=== PATIENT | male | born 1935 | race Caucasian/White ===

== ENCOUNTER 2019-05-08 15:15 | Emergency (ER) | payer MEDICARE, OTHER, SELFPAY ==
[2019-05-08 15:58] VITALS: BP 166/107; PULSE 78; RESP 18; O2SAT 94; BMI 33.3
--- NOTE | 2019-05-08 16:04 | ED_ITS ---
Entered by Deisi Harris, acting as scribe for May 08, 2019 15:15 HPI - Extremity Problem General: Chief complaint: Skin/Abscess/Foreign Body Stated complaint: leg pain Time Seen by Provider: 05/08/19 16:03 Source: patient, family and RN notes reviewed Mode of arrival: ambulatory Limitations: no limitations History of Present Illness: HPI Narrative: 83 yo male presents to ED with complaints of bruising on his buttocks and testes. The patient states he is on a blood thinner (Eloquist). His spouse said the patient has frequent bruising and this occurs about every six months. He has a large bruise back of his L buttock that has been oozing. The spouse said it finally quit oozing a short time ago. MD Complaint: extremity pain and other (buttock and testes bruising) Onset (ago): month(s) (1) Pain Consistency: constant Location: left (buttock) and other (testes) Severity scale (1-10): 8 Quality: aching and constant Radiation: none Relieving factors: medication and rest (off of site) Exacerbating factors: range of motion and rest (on site) Associated symptoms: Reports no associated symptoms; Deny chest pain, fever(s) or rash Context: other (history of same) Review of Systems Const: Denies: fever, chills, body aches or change in appetite Eyes: Denies: blurry vision or eye discomfort ENMT: Denies: throat pain or dental pain Card: Denies: chest pain Resp: Denies: shortness of breath GI: Denies: abdominal pain, nausea, vomiting or diarrhea : Denies: painful urination Musc: Denies: neck pain or back pain Skin/Breast: Denies: rash Neuro: Denies: headache Psych: Denies: depression All/Imm: Denies: hives PFSH ED PFSH: Social History Smoking and tobacco status: never smoked Physical Exam Const: COMMON NORMALS: no apparent distress, oriented x3 and healthy appearing HENMT: COMMON NORMALS: normocephalic and head/scalp atraumatic HEAD & SCALP: normocephalic and atraumatic Eye: COMMON NORMALS: PERRL and EOMs intact bilaterally PUPIL: Yes PERRL Neck/C-Spine: COMMON NORMALS: full ROM and supple Chest: COMMONS NORMALS: inspection of chest normal and palpation of chest normal Resp: COMMON NORMALS: normal respiratory effort, no retractions, no use of accessory muscles and clear to auscultation bilaterally AUSCULTATION: clear to auscultation bilaterally Cardio: COMMON NORMALS: regular rate, regular rhythm and no murmurs RATE: regular rate RHYTHM: regular rhythm GI: COMMON NORMALS: normal to inspection, nondistended, normoactive bowel sounds, soft to palpation, non-tender and no masses PALPATION: Yes soft Extremity: COMMON NORMALS: normal to inspection and full ROM Neuro: COMMON NORMALS: oriented x3, moves all extremities and no focal motor deficits Psych: COMMON NORMALS: mental status grossly normal, thought process normal and cooperative THOUGHT PROCESS: normal thought process Skin: NARRATIVE SKIN EXAM: Bruising and hematoma to perineal area. No bleeding at this time and no signs of abscess. LESIONS: lesion noted Course Vital Signs: Vital signs: Vital Signs Pulse Rate 86 05/08/19 17:13 Respiratory Rate 18 05/08/19 17:13 Blood Pressure 169/84 05/08/19 17:13 Pulse Oximetry 95 05/08/19 17:13 MDM - Extremity (Nontraumatic) MDM Narrative: Medical decision making narrative: Patient presents here with bruising along with hematoma to his buttocks and perineal region. He has no signs of abscess or Mariangel's gangrene. Patient's had these multiple times the past due to his blood thinners. He had bleeding earlier at home but is since stopped and has had no more bleeding here. Patient is well-appearing here and is stable for discharge. Patient is to follow-up with primary care doctor in 3 to 5 days and return if worsening. Lab Data: Labs: Lab Results 05/08/19 05/08/19 Range/Units 17:06 17:06 WBC 6.2 (4.0-10.0) 10^3/ uL RBC 4.64 (4.1-5.3) 10^6/u L Hgb 12.4 (11.7-16.6) g/dL Hct 40.4 L (42.0-52.0) % MCV 87.1 (80-94) fL MCH 26.7 L (28.0-34.0) pg MCHC 30.7 (30.0-36.0) g/dL RDW 18.1 H (12.1-15.1) % Plt Count 199 (130-400) 10^3/c mm MPV 10.0 (7.4-10.4) fL Neut % (Auto) 67.7 % Lymph % (Auto) 20.5 % [place] % (Auto) 7.1 % Eos % (Auto) 3.9 % Baso % (Auto) 0.5 % Neut # (Auto) 4.2 (1.8-7.7) 10^3/u L Lymph # (Auto) 1.3 (0.8-4.8) 10^3/u L [place] # (Auto) 0.4 (0.2-0.9) 10^3/u L Eos # (Auto) 0.2 (0.0-0.8) 10^3/u L Baso # (Auto) 0.0 (0.0-0.1) 10^3/u L Nucleated RBC % (a uto) 0 % Nucleated RBCs # 0.0 /100WBC PT 16.20 H (10.5-13.3) SECO NDS INR 1.26 H (0.8-1.2) Discharge Plan Discharge Patient Disposition: Home, Self-Care Clinical Impression: Hematoma Condition: Stable Prescriptions: No Action Lasix 40 mg Tablet 40 mg PO DAILY RF: 0 potassium chloride 10 mEq capsule, extended release 20 meq PO BID RF: 0 alendronate 70 mg tablet 70 mg PO Q7D RF: 0 Aspir-81 81 mg Tablet,Delayed Release (Dr/Ec) 81 mg PO DAILY RF: 0 pantoprazole 20 mg tablet,delayed release (DR/EC) 20 mg PO DAILY RF: 0 tamsulosin 0.4 mg capsule 0.4 mg PO DAILY RF: 0 lisinopril 10 mg tablet 10 mg PO DAILY RF: 0 nitroglycerin 0.4 mg tablet, sublingual 0.4 mg sublingual Q5M PRN (Reason: Chest Pain) RF: 0 methimazole 5 mg tablet 5 mg PO DAILY RF: 0 diltiazem HCl 30 mg tablet 30 mg PO TID RF: 0 rosuvastatin 40 mg tablet 40 mg PO DAILY RF: 0 Eliquis 5 mg tablet 5 mg PO BID RF: 0 Discharge Orders: Discharge Order (Routine); Ordered 05/08/19 Ordered By: Meseret Ceja Referrals: Rangel Jon MD [Primary Care Provider] - 4-7 days Discharge Diet: Advance as tolerated Discharge Activity: Resume usual activity Patient Instructions: Wound Care (General) Coding Level of Care Code ED Plant Mechanic for Chg Fwd Exam Comprehensive The documentation recorded by the Steven nguyen Valerie R, accurately reflects the service I personally performed and the decisions made by Brenna rios Korby, MD May 08, 2019 15:15
[2019-05-08 16:52] VITALS: PULSE 86; RESP 18; O2SAT 96
[2019-05-08 17:13] VITALS: BP 169/84; PULSE 86; RESP 18; O2SAT 95
[2019-05-08 17:15] LABS: Basophils % 0.5 %; Eosinophils # 0.2 10^3/uL (0.0-0.8); Eosinophils % 3.9 %; Hematocrit 40.4 % (42.0-52.0); Hemoglobin 12.4 g/dL (11.7-16.6); Lymphocytes # 1.3 10^3/uL (0.8-4.8); Lymphocytes % 20.5 %; Mean Corpuscular HGB Conc 30.7 g/dL (30.0-36.0); Mean Corpuscular Hemoglobin 26.7 pg (28.0-34.0); Mean Corpuscular Volume 87.1 fL (80-94); Monocytes # 0.4 10^3/uL (0.2-0.9); Monocytes % 7.1 %; Neutrophils # 4.2 10^3/uL (1.8-7.7); Neutrophils % 67.7 %; Nucleated Red Blood Cells % 0 %; Platelet Count 199 10^3/cmm (130-400); Red Blood Count 4.64 10^6/uL (4.1-5.3); Red Cell Distribution Width 18.1 % (12.1-15.1); White Blood Count 6.2 10^3/uL (4.0-10.0)
[2019-05-08 17:21] LABS: INR 1.26 (0.8-1.2)
[2019-05-08 18:14] VITALS: BP 153/78; PULSE 84; RESP 18; O2SAT 94
== END 2019-05-08 18:28 | disposition home or self-care (01) ==
PROVIDERS: Emergency Provider Emergency Medicine; Family Provider Family Medicine; PCP Family Medicine
DX: M79.81 Nontraumatic hematoma of soft tissue (principal); Z79.01 Long term (current) use of anticoagulants
CPT/HCPCS: 36415; 85025; 85610; 99281; 99282

== ENCOUNTER 2020-01-29 09:37 | Emergency (ER) | payer MEDICARE, OTHER, SELFPAY ==
[2020-01-29 09:43] VITALS: BP 143/62; PULSE 79; RESP 16; TEMP 36.5; O2SAT 92; BMI 43.0
--- NOTE | 2020-01-29 09:49 | W.ED.GENADLT ---
HPI - General Adult General: Chief complaint: Skin/Abscess/Foreign Body Stated complaint: ABSCESS ON THIGH Time Seen by Provider: 01/29/20 09:37 Source: patient, family and EMS Mode of arrival: EMS Limitations: no limitations History of Present Illness: HPI narrative: Mr. Kamara is a nice 84-year-old male who comes in complaining of bleeding from a spot on his bottom. Family states he is on Eliquis. He takes this for chronic atrial fibrillation. He has a history of varicose veins and pressure source was bottom. The bleeding started yesterday was intermittent and today it was intermittent but has been slow but they cannot get it to stop. Patient denies any pain. Is been no fever. There has been no purulent drainage. Associated symptoms: Deny chest pain, dyspnea, headache(s), nausea, rash, palpitations, syncope or vomiting Review of Systems Const: Denies: fever(s) Eyes: Denies: change in vision or blurry vision ENMT: Denies: throat pain, hoarseness or swelling of lips/tongue Card: Denies: chest pain, palpitations, syncope, pre-syncope or dyspnea on exertion Resp: Denies: dyspnea, productive cough, non-productive cough, wheezing, change in phlegm color or hemoptysis GI: Denies: abdominal pain, nausea, vomiting or diarrhea : Denies: flank pain, dysuria, urinary frequency or urinary urgency Musc: Denies: neck pain, back pain or extremity pain Skin/Breast: Denies: rash or pruritus Neuro: Denies: headache(s), numbness in extremities, weakness in extremities or dizziness [place]/Lymph: Denies: easy bruising, easy bleeding, petechiae or purpura All/Imm: Denies: urticaria or throat swelling PFSH ED PFSH: Social History Smoking and tobacco status: never smoked Physical Exam Const: COMMON NORMALS: no acute distress, patient oriented x3, no limitations and alert GENERAL APPEARANCE: cooperative HENMT: COMMON NORMALS: normocephalic, atraumatic, external ears normal, EAC's normal and Normal external nose present HEAD & SCALP: normal to inspection, normocephalic and atraumatic FACE & SINUS: normal facial exam and face symmetric NOSE: Normal external nose present and Normal nares present EXTERNAL EAR: Yes external ears normal EXTERNAL AUDITORY CANAL: EAC's normal MOUTH: Normal oral and palatal mucosa present, lip normal and tongue normal Eye: COMMON NORMALS: Equal, round and reactive pupils present and conjunctivae normal GENERAL EYE: appearance normal, both eyes and all related structures ALIGNMENT: Yes alignment normal PERIORBITAL: periorbital findings normal EYELID: eyelids normal CONJUNCTIVA: Yes conjunctivae normal SCLERA: sclerae normal PUPIL: Yes Equal, round and reactive pupils present Neck/C-Spine: COMMON NORMALS: full ROM, no lymphadenopathy, supple, no meningeal signs and no JVD GENERAL: Yes normal visual inspection and Yes trachea midline Chest: COMMONS NORMALS: normal inspection of the chest and normal palpation of entire chest wall Resp: COMMON NORMALS: normal respiratory effort, No retractions, No use of accessory muscles and clear to auscultation bilaterally EFFORT & INSPECTION: Yes able to speak in complete sentences and Yes symmetric chest movement AUSCULTATION: clear to auscultation bilaterally, no crackles, no rales, no rhonchi and no wheezes Cardio: COMMON NORMALS: no JVD, regular rate, regular rhythm, S1 normal heart sound present and S2 normal heart sound present RATE: regular rate RHYTHM: regular rhythm HEART SOUNDS: S1 normal heart sound present, S2 normal heart sound present, no click, no gallops, no murmurs and no rubs GI: COMMON NORMALS: Soft to palpation and No hepatosplenomegaly present PALPATION: Yes Soft to palpation, No Tenderness to palpation present (GI), No Guarding due to palpation present (GI), No Rigid due to palpation, Yes No hepatosplenomegaly present, No Hernia present, No Palpable mass present and No Pulsatile mass present : COMMON NORMALS: Yes no CVA tenderness BLADDER/KIDNEY EXAM: Yes no CVA tenderness Back/Pelvis: COMMON NORMALS: no CVA tenderness, thoracic and lumbar spine normal to inspection, no thoracic nor lumbar tenderness and thoraco-lumbar ROM normal Extremity: COMMON NORMALS: normal to inspection, full ROM, capillary refill normal, no joint enlargement, no clubbing, cyanosis or edema and no calf tenderness Neuro: COMMON NORMALS: patient oriented x3, CN's II-XII intact bilaterally, moves all extremities, no focal motor deficits and no sensory deficits noted SENSORIUM/ORIENTATION: Yes alert MENINGEAL SIGNS: Yes no meningeal signs SPEECH: speech normal Psych: COMMON NORMALS: mental status grossly normal, Normal thought process present, cooperative, normal affect, speech normal and activity/motor behavior normal SPEECH: Yes normal speech THOUGHT PROCESS: Normal thought process present Skin: COMMON NORMALS: no rashes or lesions noted, turgor normal, no jaundice, no petechiae and no mottling NARRATIVE SKIN EXAM: On the right buttock there is an area of varicose veins present. There is a small skin tag that is slowly bleeding at this time. There is no arterial bleeding. Patient does have some bruising down to the bilateral buttock but there is no sign of significant infection. There is no tenderness to touch. There is minimal if any skin breakdown. GENERAL SKIN EXAM: no rashes or lesions noted and turgor normal Course ED course: 1126 -after injection and Surgicel placed there is no active bleeding at this time. Vital Signs: Vital signs: Vital Signs Temperature 97.7 F 01/29/20 09:43 Pulse Rate 79 01/29/20 09:43 Respiratory Rate 16 01/29/20 09:43 Blood Pressure 143/62 01/29/20 09:43 Pulse Oximetry 92 01/29/20 09:43 MDM - General Adult MDM Narrative: Medical decision making narrative: 1223 -after injecting the area that was bleeding with 10 cc of lidocaine with epi and placing Surgicel on the area there is been no further bleeding. Patient is mildly anemic but no worse than his normal. This been no other reported bleeding by the family. I had his look at the perineum with me and she says other than the spot bleeding it looks like it normally does. I see no evidence of skin infection, abscess. Patient does have varicose veins in the area. His states he hardly gets up and walks at all he is very immobile. Encouraged her to keep him turned off of his bottom as much as possible. They work take some Surgicel home and place it on the area if it begins to bleed again but she understands that he can return here if necessary. She states that he has been here before for similar symptoms. Lab Data: Labs: Lab Results 01/29/20 01/29/20 Range/Units 11:42 11:42 WBC 7.5 (4.0-10.0) 10^3/ uL RBC 4.16 (4.1-5.3) 10^6/u L Hgb 11.2 L (11.7-16.6) g/dL Hct 38.1 L (42.0-52.0) % MCV 91.6 (80-94) fL MCH 26.9 L (28.0-34.0) pg MCHC 29.4 L (30.0-36.0) g/dL RDW 17.5 H (12.1-15.1) % Plt Count 217 (130-400) 10^3/c mm MPV 10.4 (7.4-10.4) fL Neut % (Auto) 70.9 % Lymph % (Auto) 18.0 % [place] % (Auto) 8.8 % Eos % (Auto) 1.5 % Baso % (Auto) 0.5 % Neut # (Auto) 5.30 (1.8-7.7) 10^3/u L Lymph # (Auto) 1.4 (0.8-4.8) 10^3/u L [place] # (Auto) 0.7 (0.2-0.9) 10^3/u L Eos # (Auto) 0.1 (0.0-0.8) 10^3/u L Baso # (Auto) 0.0 (0.0-0.1) 10^3/u L Nucleated RBC % (a uto) 0 % Nucleated RBCs # 0.0 /100WBC PT 20.30 H (12.1-14.9) SECO NDS INR 1.67 H (0.8-1.2) APTT 36.1 (23.9-36.7) SECO NDS Discharge Plan Discharge Patient Disposition: Home Clinical Impression: Bleeding from wound Condition: Stable Prescriptions: No Action Lasix 40 mg Tablet 40 mg PO DAILY RF: 0 potassium chloride 10 mEq capsule, extended release 20 meq PO BID RF: 0 alendronate 70 mg tablet 70 mg PO Q7D RF: 0 Aspir-81 81 mg Tablet,Delayed Release (Dr/Ec) 81 mg PO DAILY RF: 0 pantoprazole 20 mg tablet,delayed release (DR/EC) 20 mg PO DAILY RF: 0 tamsulosin 0.4 mg capsule 0.4 mg PO DAILY RF: 0 lisinopril 10 mg tablet 10 mg PO DAILY RF: 0 nitroglycerin 0.4 mg tablet, sublingual 0.4 mg sublingual Q5M PRN (Reason: Chest Pain) RF: 0 methimazole 5 mg tablet 5 mg PO DAILY RF: 0 diltiazem HCl 30 mg tablet 30 mg PO TID RF: 0 rosuvastatin 40 mg tablet 40 mg PO DAILY RF: 0 Eliquis 5 mg tablet 5 mg PO BID RF: 0 Discharge Orders: Discharge Order (Routine); Ordered 01/29/20 Ordered By: Areli Bermudez Referrals: Rangel Jon MD [Primary Care Provider] - 1-3 days Discharge Diet: Usual diet Discharge Activity: Resume usual activity Patient Instructions: Laceration (ED) Activity Restrictions/Additional Instructions: Please return to the ER immediately for any of the signs or symptoms listed on your discharge instruction sheets, worsening/changing of your symptoms, you are not getting better as quickly as expected, or for ANY other cause or concerns. Keep your 's wound clean and dry. Placed the Surgicel back over the affected area if it begins to bleed again. Try to keep him off his bottom directly as much as possible by turning and rolling him on his side. Return to the ER for bleeding that cannot be stopped, fever, vomiting, or for any other cause for concern. Coding Level of Care Code ED Gasoline Plant Operator for Kristina Fwd Exam Comprehensive
[2020-01-29 11:51] LABS: Basophils % 0.5 %; Eosinophils # 0.1 10^3/uL (0.0-0.8); Eosinophils % 1.5 %; Hematocrit 38.1 % (42.0-52.0); Hemoglobin 11.2 g/dL (11.7-16.6); Lymphocytes # 1.4 10^3/uL (0.8-4.8); Mean Corpuscular HGB Conc 29.4 g/dL (30.0-36.0); Mean Corpuscular Hemoglobin 26.9 pg (28.0-34.0); Mean Corpuscular Volume 91.6 fL (80-94); Mean Platelet Volume 10.4 fL (7.4-10.4); Monocytes # 0.7 10^3/uL (0.2-0.9); Monocytes % 8.8 %; Neutrophils % 70.9 %; Nucleated Red Blood Cells % 0 %; Platelet Count 217 10^3/cmm (130-400); Red Blood Count 4.16 10^6/uL (4.1-5.3); Red Cell Distribution Width 17.5 % (12.1-15.1); White Blood Count 7.5 10^3/uL (4.0-10.0)
[2020-01-29 12:05] LABS: INR 1.67 (0.8-1.2)
[2020-01-29 12:06] LABS: Partial Thromboplastin Time 36.1 SECONDS (23.9-36.7)
[2020-01-29 13:19] VITALS: BP 168/83; PULSE 69; RESP 18; O2SAT 98
== END 2020-01-29 12:40 | disposition home or self-care (01) ==
PROVIDERS: Emergency Provider Emergency Medicine; PCP Family Medicine
DX: R58 Hemorrhage, not elsewhere classified (principal); L91.8 Other hypertrophic disorders of the skin; I86.8 Varicose veins of other specified sites; I48.20 Chronic atrial fibrillation, unspecified; D64.9 Anemia, unspecified; Z79.82 Long term (current) use of aspirin; Z79.01 Long term (current) use of anticoagulants
CPT/HCPCS: 12345; 85025; 85610; 85730; 99281; 99282

== ENCOUNTER 2020-01-30 17:12 | Emergency (ER) | payer MEDICARE, OTHER, SELFPAY ==
[2020-01-30 17:19] VITALS: BP 161/87; PULSE 68; RESP 18; TEMP 35.9; O2SAT 94; BMI 33.0
[2020-01-30 17:53] VITALS: BP 128/55; PULSE 65; RESP 18; O2SAT 93
[2020-01-30 18:40] VITALS: BP 118/50; PULSE 60; RESP 18; TEMP 37.2; O2SAT 93
--- NOTE | 2020-02-01 07:47 | W.ED.GENADLT ---
HPI - General Adult General: Chief complaint: General Medical Stated complaint: GROIN BLEEDING Time Seen by Provider: 01/30/20 17:25 History of Present Illness: HPI narrative: This patient is an 84-year-old gentleman brought in today by his . He is on Eliquis and was here yesterday for an area on his bottom that was bleeding. This probably is a little ruptured varicosity. It was treated with lidocaine with epi and Surgicel pads. His said it started bleeding again today and she brought him back in. He otherwise is at his baseline. He does have dementia. Onset (ago): day(s) (2) Location: buttocks Associated symptoms: Deny chest pain or dyspnea Review of Systems Const: Denies: fever(s) Card: Denies: chest pain Resp: Denies: dyspnea PFSH ED PFSH: Social History Smoking and tobacco status: never smoked Physical Exam Const: COMMON NORMALS: no acute distress, patient oriented x3, no limitations and alert GENERAL APPEARANCE: cooperative and comfortable HENMT: HEAD & SCALP: normal to inspection FACE & SINUS: normal facial exam Eye: GENERAL EYE: appearance normal, both eyes and all related structures Neck/C-Spine: COMMON NORMALS: supple, no meningeal signs and no JVD Chest: COMMONS NORMALS: normal inspection of the chest Resp: COMMON NORMALS: normal respiratory effort, No use of accessory muscles and clear to auscultation bilaterally AUSCULTATION: clear to auscultation bilaterally Cardio: COMMON NORMALS: no JVD, regular rate, regular rhythm and No murmurs present (Cardio) RATE: regular rate RHYTHM: regular rhythm GI: COMMON NORMALS: Normal to inspection, nondistended, normoactive bowel sounds present, Soft to palpation and non-tender INSPECTION: Yes normal to inspection AUSCULTATION: Yes normoactive bowel sounds PALPATION: Yes Soft to palpation Back/Pelvis: COMMON NORMALS: thoracic and lumbar spine normal to inspection Extremity: COMMON NORMALS: normal to inspection (Bilateral edema) Neuro: COMMON NORMALS: patient oriented x3, moves all extremities, no focal motor deficits and no sensory deficits noted SENSORIUM/ORIENTATION: Yes alert MENINGEAL SIGNS: Yes no meningeal signs Psych: COMMON NORMALS: mental status grossly normal, cooperative and normal affect Skin: COMMON NORMALS: no rashes or lesions noted and turgor normal GENERAL SKIN EXAM: no rashes or lesions noted and turgor normal Procedures Laceration Laceration 1: Site: lower extremity Side (If applicable): right Description: other ([place]) Local Anesthetic: lidocaine 1% and with epi Skin layer closed with: nylon Technique: [id number] (I placed 1 [id number] suture with 3-0 Ethilon for control of bleeding.) Course ED course: Discussed return precautions with his . She was reassured that the small amount of bleeding does not need to necessarily come back to the hospital but if he does have significant or increased bleeding he should immediately return. Vital Signs: Vital signs: Vital Signs Temperature 98.9 F 01/30/20 18:40 Pulse Rate 60 01/30/20 18:40 Respiratory Rate 18 01/30/20 18:40 Blood Pressure 118/50 01/30/20 18:40 Pulse Oximetry 93 01/30/20 18:40 Discharge Plan Discharge Patient Disposition: Home Clinical Impression: Bleeding from wound Condition: Stable Prescriptions: No Action Lasix 40 mg Tablet 40 mg PO DAILY RF: 0 potassium chloride 10 mEq capsule, extended release 20 meq PO BID RF: 0 alendronate 70 mg tablet 70 mg PO Q7D RF: 0 Aspir-81 81 mg Tablet,Delayed Release (Dr/Ec) 81 mg PO DAILY RF: 0 pantoprazole 20 mg tablet,delayed release (DR/EC) 20 mg PO DAILY RF: 0 tamsulosin 0.4 mg capsule 0.4 mg PO DAILY RF: 0 lisinopril 10 mg tablet 10 mg PO DAILY RF: 0 nitroglycerin 0.4 mg tablet, sublingual 0.4 mg sublingual Q5M PRN (Reason: Chest Pain) RF: 0 methimazole 5 mg tablet 5 mg PO DAILY RF: 0 diltiazem HCl 30 mg tablet 30 mg PO TID RF: 0 rosuvastatin 40 mg tablet 40 mg PO DAILY RF: 0 Eliquis 5 mg tablet 5 mg PO BID RF: 0 Discharge Orders: Discharge Order (Routine); Ordered 01/30/20 Ordered By: Amie Davidson Referrals: Ildefonso Acosta MD [Physician] - (2 weeks - suture removal varicosity on right upper thigh) Rangel Jon MD [Primary Care Provider] - Discharge Diet: Usual diet Discharge Activity: Resume usual activity Patient Instructions: Varicose Veins (ED) Activity Restrictions/Additional Instructions: Follow-up with Dr. Acosta to have the suture removed in about 2 weeks. If there is oozing from the wound you can reapply more of the Surgicel and a new dressing. If the bleeding is very heavy or goes on for days then he should be rechecked. Coding Level of Care Code ED Straightening Machine Feeder for Kristina Shahid
== END 2020-01-30 18:43 | disposition home or self-care (01) ==
PROVIDERS: Emergency Provider Emergency Medicine; PCP Family Medicine
DX: R58 Hemorrhage, not elsewhere classified (principal); Z79.82 Long term (current) use of aspirin; Z79.01 Long term (current) use of anticoagulants
CPT/HCPCS: 12345; 99282

== ENCOUNTER 2020-02-03 08:47 | Emergency (ER) | payer MEDICARE, OTHER, SELFPAY ==
[2020-02-03 08:49] VITALS: BP 124/80; PULSE 69; RESP 16; TEMP 36.6; O2SAT 94
[2020-02-03 08:54] VITALS: BMI 33.0
--- NOTE | 2020-02-03 09:07 | ED_ITS ---
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 He is on Eliquis. He was seen by Dr. Davidson in the ER on 01/31, prior to that was seen on 01/28.. At that time he had the same complaint Dr. Davidson placed a [id number] suture. Prior to that they did put Surgicel on small varicosities that had ruptured. 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 He has some dementia. He is not really able to contribute significantly to his history. His assists with most of his history. MD Complaint: other (Bleeding varicosities) Onset (ago): day(s) Pain Consistency: intermittent Location: other (Perineum) Associated symptoms: Deny chest pain or fever(s) Review of Systems Const: Denies: fever(s), chills, body aches, change in appetite, fatigue or malaise Card: Denies: chest pain, edema, dyspnea on exertion or orthopnea Resp: Denies: dyspnea, productive cough or non-productive cough GI: Denies: abdominal pain, nausea, vomiting, hematemesis, coffee ground emesis, diarrhea, constipation, bloating, hematochezia or melena : Denies: flank pain, dysuria, urinary frequency or urinary urgency PFS ED PFSH: Medical History (Updated 02/03/20 @ 09:47 by Kenroy Luna DO) Congestive heart failure Social History Smoking and tobacco status: never smoked Physical Exam Const: COMMON NORMALS: no acute distress GENERAL APPEARANCE: cooperative and comfortable HENMT: COMMON NORMALS: normocephalic and atraumatic HEAD & SCALP: normocephalic and atraumatic Neck/C-Spine: COMMON NORMALS: no JVD Resp: COMMON NORMALS: normal respiratory effort, No retractions, No use of accessory muscles and clear to auscultation bilaterally AUSCULTATION: clear to auscultation bilaterally Cardio: COMMON NORMALS: no JVD, regular rate, regular rhythm and No murmurs present (Cardio) RATE: regular rate RHYTHM: regular rhythm GI: COMMON NORMALS: Soft to palpation and No hepatosplenomegaly present AUSCULTATION: Yes normoactive bowel sounds PALPATION: Yes Soft to palpation, No Tenderness to palpation present (GI), No Guarding due to palpation present (GI) and Yes No hepatosplenomegaly present Skin: NARRATIVE SKIN EXAM: Examination of the skin of the perineum there is a varicosity is been sutured with a single [id number] nylon suture it has no evidence of active bleeding there is Surgicel overlying with a little bit of old blood on it proximal thigh there is a similar lesion without a stitch but no active bleeding. Both of these were redressed with a Bioclusive with Surgicel overlying the wounds. Rechecked after lab work is completed no sign of any active bleeding Course Vital Signs: Vital signs: Vital Signs Temperature 97.8 F 02/03/20 08:49 Pulse Rate 69 02/03/20 08:49 Respiratory Rate 16 02/03/20 08:49 Blood Pressure 124/80 02/03/20 08:49 Pulse Oximetry 94 02/03/20 08:49 MDM - Extremity (Nontraumatic) MDM Narrative: Medical decision making narrative: Wound care instructions given follow-up with Dr. Jon in 1 week from the placement the original aleman ture to have it removed continue the Bioclusive's and Surgicel. Return if has further bleeding problems. No sign of bleeding at time of discharge Lab Data: Labs: Lab Results 02/03/20 Range/Units 09:30 WBC 6.2 (4.0-10.0) 10^3/ uL RBC 4.43 (4.1-5.3) 10^6/u L Hgb 11.7 (11.7-16.6) g/dL Hct 40.9 L (42.0-52.0) % MCV 92.3 (80-94) fL MCH 26.4 L (28.0-34.0) pg MCHC 28.6 L (30.0-36.0) g/dL RDW 17.3 H (12.1-15.1) % Plt Count 225 (130-400) 10^3/c mm MPV 9.8 (7.4-10.4) fL Neut % (Auto) 62.9 % Lymph % (Auto) 22.4 % [place] % (Auto) 10.0 % Eos % (Auto) 3.4 % Baso % (Auto) 1.1 % Neut # (Auto) 3.90 (1.8-7.7) 10^3/u L Lymph # (Auto) 1.4 (0.8-4.8) 10^3/u L [place] # (Auto) 0.6 (0.2-0.9) 10^3/u L Eos # (Auto) 0.2 (0.0-0.8) 10^3/u L Baso # (Auto) 0.1 (0.0-0.1) 10^3/u L Nucleated RBC % (a uto) 0 % Nucleated RBCs # 0.0 /100WBC Discharge Plan Discharge Patient Disposition: Home Clinical Impression: Bleeding from varicose vein, Anticoagulant long-term use Condition: Stable Prescriptions: No Action Lasix 40 mg Tablet 40 mg PO DAILY RF: 0 potassium chloride 10 mEq capsule, extended release 20 meq PO BID RF: 0 alendronate 70 mg tablet 70 mg PO Q7D RF: 0 Aspir-81 81 mg Tablet,Delayed Release (Dr/Ec) 81 mg PO DAILY RF: 0 pantoprazole 20 mg tablet,delayed release (DR/EC) 20 mg PO DAILY RF: 0 tamsulosin 0.4 mg capsule 0.4 mg PO DAILY RF: 0 lisinopril 10 mg tablet 10 mg PO DAILY RF: 0 nitroglycerin 0.4 mg tablet, sublingual 0.4 mg sublingual Q5M PRN (Reason: Chest Pain) RF: 0 methimazole 5 mg tablet 5 mg PO DAILY RF: 0 diltiazem HCl 30 mg tablet 30 mg PO TID RF: 0 rosuvastatin 40 mg tablet 40 mg PO DAILY RF: 0 Eliquis 5 mg tablet 5 mg PO BID RF: 0 Discharge Orders: Discharge Order (Routine); Ordered 02/03/20 Ordered By: Kenroy Luna Referrals: Rangel Jon MD [Primary Care Provider] - Discharge Diet: Usual diet Discharge Activity: Limit activity as instructed Coding Level of Care Code ED Neon Tube Bender for Nilog Kleber
[2020-02-03 09:38] LABS: Basophils # 0.1 10^3/uL (0.0-0.1); Basophils % 1.1 %; Eosinophils # 0.2 10^3/uL (0.0-0.8); Eosinophils % 3.4 %; Hematocrit 40.9 % (42.0-52.0); Hemoglobin 11.7 g/dL (11.7-16.6); Lymphocytes # 1.4 10^3/uL (0.8-4.8); Lymphocytes % 22.4 %; Mean Corpuscular HGB Conc 28.6 g/dL (30.0-36.0); Mean Corpuscular Hemoglobin 26.4 pg (28.0-34.0); Mean Corpuscular Volume 92.3 fL (80-94); Mean Platelet Volume 9.8 fL (7.4-10.4); Monocytes # 0.6 10^3/uL (0.2-0.9); Neutrophils % 62.9 %; Nucleated Red Blood Cells % 0 %; Platelet Count 225 10^3/cmm (130-400); Red Blood Count 4.43 10^6/uL (4.1-5.3); Red Cell Distribution Width 17.3 % (12.1-15.1); White Blood Count 6.2 10^3/uL (4.0-10.0)
[2020-02-03 09:55] VITALS: BP 118/59; PULSE 61; RESP 20; O2SAT 92
== END 2020-02-03 09:55 | disposition home or self-care (01) ==
PROVIDERS: Emergency Provider Family Medicine; PCP Family Medicine
DX: I83.899 Varicose veins of unspecified lower extremity with other complications (principal); I50.9 Heart failure, unspecified; Z79.82 Long term (current) use of aspirin; Z79.01 Long term (current) use of anticoagulants
CPT/HCPCS: 12345; 85025; 99281; 99282

== ENCOUNTER 2020-05-04 10:43 | Emergency (ER) | payer MEDICARE, OTHER, SELFPAY ==
[2020-05-04] VITALS (7 sets, daily range): BP systolic 94–115; BP diastolic 52–71; PULSE 60–61; RESP 16–22; O2SAT 92–98; BMI 34.8
--- NOTE | 2020-05-04 10:58 | ECG_ITS ---
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 Measurements Intervals [place] Rate: 60 P: 253 UT: 179 QRS: -83 QRSD: 244 T: 109 QT: 558 QTc: 558 Interpretive Statements ELECTRONIC ATRIAL PACEMAKER ELECTRONIC VENTRICULAR PACEMAKER PROLONGED QT INTERVAL CRITICAL TEST RESULT Compared to ECG 01/26/2019 15:52:51 Prolonged QT interval now present Atrial fibrillation no longer present Right-axis deviation no longer present Right bundle-branch block no longer present Electronically Signed On 05-04-2020 20:07:22 BANKING REPRESENTATIVE by Christopher Killian M.D. [id number]
--- NOTE | 2020-05-04 10:58 | XR_ITS ---
WS: [id number] Exam: XR chest 1V portable [id number] Date/Time of Exam: 05/04/2020 11:07 AM Reason For Exam: chf Comparison 01/26/2019. There is marked cardiac enlargement with pulmonary vascular congestion suggesting CHF. Small right-si ded pleural effusion noted. The lungs are fully expanded. There are diffuse airspace infiltrates in b oth lungs. 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 A permanent cardiac pacer aleman perimposes the left chest. Regional bony elements are intact. The mediastinum is not widened for tech nique. XR/XR chest 1V portable [id number] IMPRESSION: 1. Cardiac enlargement with pulmonary vascular congestion and small right pleur al effusion suggesting congestive heart failure. 2. There are diffuse bilateral pulmonary infiltrates most marked on the right. Superimposed pneumonia is not excluded.
[2020-05-04 11:25] LABS: Basophils % 0.3 %; Eosinophils # 0.1 10^3/uL (0.0-0.8); Eosinophils % 1.1 %; Hematocrit 38.3 % (42.0-52.0); Hemoglobin 11.4 g/dL (11.7-16.6); Lymphocytes # 0.9 10^3/uL (0.8-4.8); Lymphocytes % 11.8 %; Mean Corpuscular HGB Conc 29.8 g/dL (30.0-36.0); Mean Corpuscular Volume 87.4 fL (80-94); Monocytes # 0.8 10^3/uL (0.2-0.9); Monocytes % 10.6 %; Neutrophils # 5.67 10^3/uL (1.8-7.7); Neutrophils % 75.9 %; Nucleated Red Blood Cells % 0 %; Platelet Count 88 10^3/cmm (130-400); Red Blood Count 4.38 10^6/uL (4.1-5.3); Red Cell Distribution Width 21.4 % (12.1-15.1); White Blood Count 7.5 10^3/uL (4.0-10.0)
--- NOTE | 2020-05-04 11:47 | ED_ITS ---
HPI - SOB/Dyspnea General: Chief Complaint: Shortness of Breath/Dyspnea Stated Complaint: SOB/ HX OF CHF Time Seen by Provider: 05/04/20 10:51 History of Present Illness: HPI Narrative: Patient is an 84-year-old male that presents via EMS for lower extremity swelling and shortness of breath. Patient has dementia and does not provide any history. History is provided by his who is at bedside. She states that over the last several days he is gradually become more swollen in his lower extremities and has a few fluid blisters noted. She also feels as though his abdomen is more swollen and tight. She states that his loss prevention representative at [facility] has been trying to balance his chronic kidney disease with his diuretics. He recently had his diuretics increased about 3 or 4 weeks ago. He is on Lasix and metolazone. She denies any recent cough or fevers. She is also concerned that one of the fluid blisters on his right lower extremity may be infected. She states that his urine is also been decreased despite taking his diuretics. MD elicited complaint: shortness of breath Pertinent past history: congestive heart failure Exacerbating factors: lying flat Known history of: congestive heart failure Review of Systems General: Reports: ROS unobtainable due to medical condition (Dementia) [facility] ED PFS: Medical History (Updated 05/04/20 @ 14:00 by Chris Gillis DO) Congestive heart failure Social History Smoking and tobacco status: never smoked Physical Exam Const: COMMON NORMALS: no acute distress, patient oriented x3, alert and well nourished HENMT: COMMON NORMALS: normocephalic, atraumatic, EAC's normal, TM's normal bilaterally and Normal external nose present HEAD & SCALP: normocephalic and atraumatic FACE & SINUS: normal facial exam and face symmetric NOSE: Normal external nose present EXTERNAL AUDITORY CANAL: EAC's normal TYMPANIC MEMBRANE: TM's normal bilaterally MOUTH: Normal oral and palatal mucosa present and moist mucous membranes abnormal Eye: COMMON NORMALS: Equal, round and reactive pupils present PUPIL: Yes Equal, round and reactive pupils present Neck/C-Spine: GENERAL: Yes normal visual inspection Chest: COMMONS NORMALS: normal inspection of the chest Resp: COMMON NORMALS: normal respiratory effort, No retractions, No use of accessory muscles and clear to auscultation bilaterally AUSCULTATION: clear to auscultation bilaterally Cardio: COMMON NORMALS: regular rate, regular rhythm, S1 normal heart sound present, S2 normal heart sound present and No murmurs present (Cardio) RATE: regular rate RHYTHM: regular rhythm HEART SOUNDS: S1 normal heart sound present and S2 normal heart sound present OTHER: 2+ bilateral lower extremity pitting edema. GI: COMMON NORMALS: No hepatosplenomegaly present INSPECTION: Yes normal to inspection and Yes abdominal distension AUSCULTATION: Yes normoactive bowel sounds PALPATION: Yes Firmness to palpation present (GI) and Yes No hepatosplenomegaly present RECTAL EXAM: Yes deferred : COMMON NORMALS: Yes no CVA tenderness BLADDER/KIDNEY EXAM: Yes no CVA tenderness Back/Pelvis: COMMON NORMALS: no CVA tenderness Neuro: COMMON NORMALS: patient oriented x3 and moves all extremities SENSORIUM/ORIENTATION: Yes alert SPEECH: speech normal Psych: COMMON NORMALS: mental status grossly normal Skin: COMMON NORMALS: no rashes or lesions noted NARRATIVE SKIN EXAM: Several fluid blisters noted to the lower extremities. Right lower extremity has wound to the anterior cottrell that is concerning for early infection with surrounding erythema and macerated skin. GENERAL SKIN EXAM: no rashes or lesions noted Course Vital Signs: Vital signs: Vital Signs Pulse Rate 61 05/04/20 13:00 Respiratory Rate 22 H 05/04/20 13:00 Blood Pressure 94/71 05/04/20 13:00 Pulse Oximetry 94 05/04/20 13:00 MDM - SOB/Dyspnea MDM Narrative: Medical decision making narrative: Patient remained stable in ED. He is requiring some supplemental oxygen at 2 L by nasal cannula. He is not in any respiratory distress. Chest x-ray is consistent with pulmonary edema and CHF exacerbation. He is also noted to have acute on chronic renal insufficiency. BNP is also elevated. Given the acute renal failure and still in need for diuresis recommending the patient be admitted. The patient's loss prevention representative is Dr. Crooks at [facility]. The patients would prefer the continuity of care and be transferred to [facility]. Case discussed with Dr. Rosen, hospitalist on-call at [facility] and he accepts the patient in transfer. Lab Data: Labs: Lab Results 05/04/20 05/04/20 05/04/20 Range/Units 11:10 11:10 11:28 WBC 7.5 (4.0-10.0) 10^3/ uL RBC 4.38 (4.1-5.3) 10^6/u L Hgb 11.4 L (11.7-16.6) g/dL Hct 38.3 L (42.0-52.0) % MCV 87.4 (80-94) fL MCH 26.0 L (28.0-34.0) pg MCHC 29.8 L (30.0-36.0) g/dL RDW 21.4 H (12.1-15.1) % Plt Count 88 L (130-400) 10^3/c mm MPV Not Reportable Neut % (Auto) 75.9 % Lymph % (Auto) 11.8 % [place] % (Auto) 10.6 % Eos % (Auto) 1.1 % Baso % (Auto) 0.3 % Neut # (Auto) 5.67 (1.8-7.7) 10^3/u L Lymph # (Auto) 0.9 (0.8-4.8) 10^3/u L [place] # (Auto) 0.8 (0.2-0.9) 10^3/u L Eos # (Auto) 0.1 (0.0-0.8) 10^3/u L Baso # (Auto) 0.0 (0.0-0.1) 10^3/u L Nucleated RBC % (a uto) 0 % Nucleated RBCs # 0.0 /100WBC Sodium Cancelled 134 L Potassium Cancelled 4.1 Chloride Cancelled 97 L Carbon Dioxide Cancelled 26 Anion Gap Cancelled 15.1 BUN Cancelled 62 H Creatinine Cancelled 4.1 H GFR Calculation Cancelled Not Reportable Glucose Cancelled 91 Calculated Osmolal ity Cancelled 295 Calcium Cancelled 8.3 L NT-Pro-B Natriuret Pep Cancelled 5714 H EKG Data^: EKG 1: Attestation: I personally reviewed and interpreted this EKG as follows: EKG Interpretation Date: 05/04/20 EKG interpretation time: 11:30 Prior EKG tracings: not available for review Interpretation: EKG demonstrates atrial and ventricularly paced rhythm at 60 bpm. QT is prolonged at 558. No priors available for comparison. Discharge Plan Discharge Patient Disposition: Xfer Other Clinical Impression: Hypoxia Congestive heart failure Qualifiers: Heart failure type: unspecified Heart failure chronicity: unspecified Qualified Code(s): I50.9 - Heart failure, unspecified Acute on chronic renal failure Qualifiers: Acute renal failure type: unspecified Chronic kidney disease stage: unspecified stage Qualified Code(s): N17.9 - Acute kidney failure, unspecified Condition: Stable Discharge Orders: Transfer Out of Facility (Order); Ordered 05/04/20 Ordered By: Chris Gillis Referrals: Rangel Jon MD [Primary Care Provider] - Coding Level of Care Code ED Adult And Pediatric Neurologist for Chg Fwd Exam Comprehensive
[2020-05-04 12:19] LABS: Blood Urea Nitrogen 62 mg/dL (8-23); Calcium 8.3 mg/dL (8.5-10.5); Carbon Dioxide 26 mmol/L (22-29); Chloride 97 mmol/L (98-107); Glucose 91 mg/dL (65-115); NT Pro B Type Natriuretic Pept 5714 pg/mL (0-450); Osmolality Calculated 295 mOsm/kg (285-295); Sodium 134 mmol/L (136-145)
[2020-05-04 12:20] LABS: Anion Gap 15.1 (5-19); Potassium 4.1 mmol/L (3.5-5.1)
== END 2020-05-04 18:57 | disposition other institution (70) ==
PROVIDERS: Emergency Provider Emergency Medicine; PCP Family Medicine
DX: I50.9 Heart failure, unspecified (principal); R09.02 Hypoxemia; N18.9 Chronic kidney disease, unspecified
CPT/HCPCS: 71045; 80048; 83880; 85025; 93005; 99285